=== PATIENT | male | born 1995 | race Caucasian/White ===

== ENCOUNTER 2020-08-17 23:05 | Emergency (ER) | payer OTHER ==
[~2020-08-17] VITALS: Ht 195.6 cm; Wt 135.0 kg
[~2020-08-17 23:05] MED LIST: ETOMIDATE 40 MG/20 ML VIAL. ONE; LIDOCAINE 2% SYRINGE 100 MG/5 ML DISP.SYRIN. ONE; MIDAZOLAM HCL PF 5 MG/5 ML VIAL. ONE
--- NOTE | 2020-08-17 23:33 | PHYS DOC ---
Past History Past Medical History: Hypothyroid General Adult HPI: HPI: Non-responsive Patient is a 25 year old male who presents with hx found down in cell at [facility]. Pt in cell with 9 other inmates. They notified guard pt. stopped breathing. Appeared to be choking or having seizure activity. Pt. no known seizure hx. Pt.had CPR for unknown length of time estimated 10 minutes with return to spontaneous circulation. Patient remained hypoxic and required bag mask ventilation. On arrival patient's hypoxic and minimal responsiveness. Patient had bite ferreira to tongue and appears to have aspirated stomach contents. Patient was sedated with Versed 5, 100 mg lidocaine, succinylcholine 100 , Etomidate 20, then, propofol. Patient intubated with a glide scope was of a 7.0 ET tube. 23-1/2 cm. at teeth. OG passed into stomach with return of stomach contents . Post intubation - had good breath sounds at apex axillary, no breath sounds over stomach. Was noted during intubation patient had food material in his ET tube. This was suction. Patient was given a breathing treatment. Patient also had OG placed with return of food particles from gastric contents. Was auscultated over the stomach. Patient transported to CT for evaluation of head neck chest chest and abdomen.. Patient did have bruising ferreira on mid abdomen (felt possibly due to hard restraints.). No medical history came with patient other than he was hypothyroid. Glucose during post code was in the 170s per paramedics. LEMON airway assessment made prior to intubation. Elected size 7 tube because Mallampati score 3 +, and need for limited neck mobility. Guard notes there has been increased use of K -4 use at [facility] recently. Review of Systems: Review of Systems: Not available due to patient's mental status Family History: Family History: Not currently available Current Medications: Current Meds: See nursing for home meds Allergies: Allergies: No known drug allergies Physical Exam: PE: Constitutional: In acute distress, ill appearance. [] HENT: Normocephalic, , bilateral external ears normal, oropharynx moist, no oral exudates, nose normal. Bite ferreira on tongue. Soft nasal airway in place. On oxygen 100%- NRBM, Stats 70-80. Eyes: PERRLA, , conjunctiva normal, no discharge. [] Neck: Normal range of motion, no tenderness, supple, no stridor. [] Cardiovascular: Tachycardia heart rate regular rhythm, no murmur , PMI to Lt. Lungs & Thorax: Bilateral breath sounds rhonchi, Rales, wheezing all lung simpson. More rhonchi on right lung simpson. Obvious food particles in ET tube Abdomen: Bowel sounds decreased, soft, no tenderness, no masses, no pulsatile masses. Bruising erythema over stomach area Skin: Warm, dry, no erythema, no rash. [] Back: No tenderness, no CVA tenderness. [] Extremities: Had peripheral cyanosis, no clubbing, moves all ext. with noxious stimuli, no edema. No cording appreciated. IO Rt tibia. Neurologic: Minimal response to noxious stimuli, does appear to move all extremities, unable to assess sensory other than. Withdrawal all 4 extremities with noxious stimuli. Appears to cross react Psychologic: Unknown status EKG: EKG: My interpretation of EKG shows a sinus tachycardia 105 bpm. [] Does have left axis deviation and a left anterior fascicular block. Radiology/Procedures: Radiology/Procedures: [][address] [address] IMAGING REPORT Signed PATIENT: BETO PANTOJA ACCOUNT: [id number] : 1995 LOCATION: ER AGE: 25 SEX: M EXAM STATUS: REG ER ORD. PHYSICIAN: KATHY MEDINA MD REASON: found down at [facility], UNRESPONSIVE PROCEDURE: CT ANGIO CHEST W ABD PEL W/ CTA CHEST_ABDOMEN_AND PELVIS INDICATION: found down at [facility], UNRESPONSIVE Comparison: None. TECHNIQUE: Following the uneventful administration of intravenous contrast, 100 cc Omnipaque 350, axial CT sections were obtained through the lungs and upper abdomen. Multiplanar reconstructions and MIP images were obtained. PQRS compliance statement: One or more of the following individualized dose reduction techniques were utilized for this examination: 1. Automated exposure control 2. Adjustment of the mA and/or kV according to patient size 3. Use of iterative reconstruction technique FINDINGS: Endotracheal tube terminates just above the chip. Enteric tube terminates in the stomach. Pulmonary arteries: No large central or lobar pulmonary thromboembolus. Distal branches not well evaluated due to motion artifact. Lungs and Airways: Extensive bilateral groundglass opacities and consolidations. No abnormality of the central airways. Pleura: The pleural spaces are normal. Heart and Mediastinum: The visualized thyroid is normal in size and attenuation. No axillary or supraclavicular lymphadenopathy. No mediastinal, hilar or retrocrural lymphadenopathy. The heart and pericardium are within normal limits. The great vessels of the thorax are normal. Abdomen: Limited images through the upper abdomen show no abnormality of the visualized organs. Bones and Soft Tissues: The visualized bones and chest wall soft tissues are within normal limits. IMPRESSION: 1. No large central or lobar pulmonary thromboembolus. Distal branches not well evaluated due to motion artifact. 2. Extensive bilateral groundglass opacities and consolidations, which could represent multifocal infection, pulmonary edema, and/or aspiration. Electronically signed by: Wil Mittal MD (08/18/2020 1:05 AM) [facility] DICTATED AND SIGNED BY: WIL MITTAL MD DATE: 08/18/20 0102 CC: KATHY MEDINA MD; PCP,NO ~MTH0 [address] [place] [id number] IMAGING REPORT Signed PATIENT: BETO PANTOJA ACCOUNT: [id number] : 1995 LOCATION: ER AGE: 25 SEX: M EXAM STATUS: REG ER ORD. PHYSICIAN: KATHY MEDINA MD REASON: found down at [facility] PROCEDURE: CT HEAD AND CERVICAL SPINE WO CT HEAD AND C-SPINE WO Date: 08/17/2020 11:45 PM Clinical Indication: found down at [facility] Comparison: None. Technique: 5 mm axial tomographic images were obtained of the head without contrast. These were viewed on brain and bone windows. CT imaging of the cervical spine was performed without contrast. Coronal and sagittal reformatted images were performed. One or more of the following dose reduction techniques were utilized: Automated exposure control (AEC), Adjustment of mA and/or kV according to patient size, Use of iterative reconstruction technique such as ASiR, CT scan done according to ALARA and image gently/image wisely HEAD FINDINGS: Motion artifact degrades image quality. The brain parenchyma is normal in attenuation. No intra- or extra-axial mass or fluid collection. No acute hemorrhage. The ventricles are normal in size, shape, and morphology. The cormier-white matter junction is normal. The basilar cisterns are patent. The visualized paranasal sinuses are normal. The visualized portions of the orbits and globes are normal. The mastoid air cells are clear. No aggressive osseous lesion or fracture. CERVICAL SPINE FINDINGS: The cervical spine is normally aligned. No acute fracture. No aggressive lytic or blastic osseous lesion. The intervertebral disc heights are maintained. No high-grade spinal canal stenosis or neural foraminal narrowing. The thyroid gland is normal. No cervical lymphadenopathy. The visualized aerodigestive tract is unremarkable. Please see concurrent CT chest report for intrathoracic finding. IMPRESSION: 1. No acute intracranial process. 2. No acute osseous abnormality of the cervical spine. Electronically signed by: Wil Mittal MD (08/18/2020 1:02 AM) [facility] DICTATED AND SIGNED BY: WIL MITTAL MD DATE: 08/18/20 0057 CC: KATHY MEDINA MD; PCP,NO ~MTH0 0 Impressions: Heart Score: C/O Chest Pain: N/A HEART Score for Chest Pain: HEART Score for Chest Pain Response (Comments) Value History Moderately Suspicious 1 ECG Nonspecific Repolarizatio 1 Age < 45 0 Risk Factors 1 or 2 Risk Factors 1 Troponin < Normal Limit 0 Total 3 Risk Factors: Risk Factors: DM, Current or recent (<one month) smoker, HTN, HLP, family history of CAD, obesity. Risk Scores: Score 0 - 3: 2.5% MACE over next 6 weeks - Discharge Home Score 4 - 6: 20.3% MACE over next 6 weeks - Admit for Clinical Observation Score 7 - 10: 72.7% MACE over next 6 weeks - Early Invasive Strategies Course & Med Decision Making: Course & Med Decision Making Pertinent Labs and Imaging studies reviewed. (See chart for details) Critical care 90 min. without procedures. Vent management, treatment. Discussed presentation, testing and tx. plan with Dr. Woody - accepted pt. in transfer at 0045. Impression:': 1. Cardiopulmonary arrest-status CPR approximately 10 minutes 2. Respiratory failure-multifactorial extensive aspiration,vs atypical pneumonia-hypoxia 3. Seizure Activity 4. Leukocytosis 18.2 5. Elevated glucose 271 6. Elevated D-dimer 3.8 7. Elevated lactic acid 5.1 8. Elevated AST ALT 254/08/15/1969 9. Hx of Hypo thyoridism 10. Initial troponin is 0.017 [] Dragon Disclaimer: Dragon Disclaimer: This electronic medical record was generated, in whole or in part, using a voice recognition dictation system. Departure Departure: Referrals: PCP,NO (PCP) Joce Disclaimer This chart was dictated in whole or in part using Voice Recognition software in a busy, high-work load, and often noisy Emergency Department environment. It may contain unintended and wholly unrecognized errors or omissions. KATHY MEDINA MD Aug 17, 2020 23:33
[2020-08-17] MEDS ORDERED: IOHEXOL 350 MG/ML 100 ML VIAL. ONE (23:40)
[2020-08-17] MEDS ORDERED: IV RINGERS SOLUTION,LACTATED 1,000 ML IV SCH (23:45)
[2020-08-17] MEDS ORDERED: PROPOFOL 20 ML IV ONE (23:45)
[2020-08-17] MEDS ORDERED: PROPOFOL 10,000 MCG/ML (20ML) VIAL IV ONE (23:45)
[2020-08-17 23:55] LABS: BASO # 0.1 x10^3/uL (0.0-0.2); BASO % 0 % (0-3); EOS # 0.3 x10^3/uL (0.0-0.7); EOS % 2 % (0-3); HEMOGLOBIN 14.3 g/dL (13.0-17.5); LYMPH # 6.4 x10^3/uL (1.0-4.8); LYMPH % 35 % (24-48); MEAN CORPUSCULAR HEMOGLOBIN 30 pg (25-35); MEAN CORPUSCULAR HGB CONC 33 g/dL (31-37); MEAN CORPUSCULAR VOLUME 92 fL (79-100); MONO # 0.7 x10^3/uL (0.0-1.1); MONO % 4 % (0-9); NEUT # 10.8 x10^3uL (1.8-7.7); NEUT % 59 % (31-73); PLATELET COUNT 385 x10^3/uL (140-400); RED BLOOD COUNT 4.76 x10^6/uL (4.30-5.70); RED CELL DISTRIBUTION WIDTH 13.5 % (11.5-14.5); WHITE BLOOD COUNT 18.2 x10^3/uL (4.0-11.0)
[2020-08-17] MEDS ORDERED: MIDAZOLAM HCL PF 5 MG/5 ML VIAL. ONE (23:56)
[2020-08-17 23:57] LABS: CALCIUM 7.9 mg/dL (8.5-10.1); CREATININE 1.2 mg/dL (0.7-1.3); GFR 74.4; POTASSIUM 3.2 mmol/L (3.5-5.1)
[2020-08-17 23:58] LABS: BARBITURATES NEG (NEG); BENZODIAZEPINES NEG (NEG); CANNABINOIDS NEG (NEG); COCAINE NEG (NEG); METHADONE NEG (NEG); OPIATES NEG (NEG); PHENCYCLIDINE NEG (NEG)
[2020-08-18] MEDS ORDERED: ALBUTEROL SULFATE 2.5 MG/3 ML NEBU. INH ONE
[2020-08-18 00:09] LABS: ALBUMIN 3.6 g/dL (3.4-5.0); DIRECT BILIRUBIN 0.1 mg/dL (0.0-0.2); MAGNESIUM 2.2 mg/dL (1.8-2.4); TOTAL BILIRUBIN 0.2 mg/dL (0.2-1.0)
[2020-08-18 00:09] LABS: BILIRUBIN,URINE NEG (NEG); CLARITY,URINE HAZY; COLOR,URINE YELLOW; GLUCOSE,URINE 100 mg/dL (NEG); NITRITE,URINE NEG (NEG); RBC,URINE 0 /HPF (0-2); UROBILINOGEN,URINE 0.2 mg/dL (0.2 mg/dL)
[2020-08-18 00:10] LABS: BACTERIA,URINE FEW /HPF (0-FEW); SQUAMOUS EPITHELIAL CELL,UR OCC /LPF
[2020-08-18 00:13] LABS: AMPHETAMINE/METHAMPHETAMINE NEG (NEG)
[2020-08-18 00:23] LABS: % BANDS 11 % (0-9); % EOS 3 % (0-5); % LYMPHS 45 % (24-48); % MONOS 2 % (0-10); % SEGS 39 % (35-66); PLT ESTIMATE ADEQUATE (ADEQUATE)
[2020-08-18] MEDS ORDERED: MIDAZOLAM HCL PF 5 MG/5 ML VIAL. ONE ×2 (00:28→04:08)
[2020-08-18] MEDS ORDERED: IOHEXOL 350 MG/ML 100 ML VIAL. IV ONE (00:30)
[2020-08-18] MEDS ORDERED: KETAMINE HCL 500 MG/10 ML VIAL. IV ONE ×2 (01:00→02:15)
[2020-08-18] MEDS ORDERED: IV RINGERS SOLUTION,LACTATED 1,000 ML IV ONE ×3 (01:00→03:45)
[2020-08-18] MEDS ORDERED: ENOXAPARIN ** NOTE DOSE ** SYRINGE SQ ONE (01:00)
[2020-08-18] MEDS ORDERED: AZITHROMYCIN 250 MG TABLET. PO ONE (01:00)
--- NOTE | 2020-08-18 01:04 | RAD ---
CT HEAD AND C-SPINE WO Date: 08/17/2020 11:45 PM Clinical Indication: found down at intermediate Comparison: None. Technique: 5 mm axial tomographic images were obtained of the head without contrast. These were view ed on brain and bone windows. CT imaging of the cervical spine was performed without contrast. Coron al and sagittal reformatted images were performed. One or more of the following dose reduction techni ques were utilized: Automated exposure control (AEC), Adjustment of mA and/or kV according to patient size, Use of iterative reconstruction technique such as ASiR, CT scan done according to ALARA and im age gently/image wisely HEAD FINDINGS: Motion artifact degrades image quality. The brain parenchyma is normal in attenuation. No intra- or extra-axial mass or fluid collection. No acute hemorrhage. The ventricles are normal in size, shape, and morphology. The cormier-white matter laurie ction is normal. The basilar cisterns are patent. The visualized paranasal sinuses are normal. The visualized portions of the orbits and globes are no rmal. The mastoid air cells are clear. No aggressive osseous lesion or fracture. CERVICAL SPINE FINDINGS: The cervical spine is normally aligned. No acute fracture. No aggressive lytic or blastic osseous les ion. The intervertebral disc heights are maintained. No high-grade spinal canal stenosis or neural foramin al narrowing. The thyroid gland is normal. No cervical lymphadenopathy. The visualized aerodigestive tract is unrem arkable. Please see concurrent CT chest report for intrathoracic finding. IMPRESSION: 1. No acute intracranial process. 2. No acute osseous abnormality of the cervical spine. Electronically signed by: Issa Mittal MD (08/18/2020 1:02 AM) [facility]
--- NOTE | 2020-08-18 01:07 | RAD ---
CTA CHEST_ABDOMEN_AND PELVIS INDICATION: found down at correction, UNRESPONSIVE Comparison: None. TECHNIQUE: Following the uneventful administration of intravenous contrast, 100 cc Omnipaque 350, axi al CT sections were obtained through the lungs and upper abdomen. Multiplanar reconstructions and MIP images were obtained. RS compliance statement: One or more of the following individualized dose reduction techniques were utilized for this examinat ion: 1. Automated exposure control 2. Adjustment of the mA and/or kV according to patient size 3. Use of iterative reconstruction technique FINDINGS: Endotracheal tube terminates just above the chip. Enteric tube terminates in the stomach. Pulmonary arteries: No large central or lobar pulmonary thromboembolus. Distal branches not well eval uated due to motion artifact. Lungs and Airways: Extensive bilateral groundglass opacities and consolidations. No abnormality of th e central airways. Pleura: The pleural spaces are normal. Heart and Mediastinum: The visualized thyroid is normal in size and attenuation. No axillary or supra clavicular lymphadenopathy. No mediastinal, hilar or retrocrural lymphadenopathy. The heart and peric ardium are within normal limits. The great vessels of the thorax are normal. Abdomen: Limited images through the upper abdomen show no abnormality of the visualized organs. Bones and Soft Tissues: The visualized bones and chest wall soft tissues are within normal limits. IMPRESSION: 1. No large central or lobar pulmonary thromboembolus. Distal branches not well evaluated due to annette on artifact. 2. Extensive bilateral groundglass opacities and consolidations, which could represent multifocal inf ection, pulmonary edema, and/or aspiration. Electronically signed by: Issa Mittal MD (08/18/2020 1:05 AM) [facility]
[2020-08-18] MEDS ORDERED: cefTRIAXone SODIUM 1 GM VIAL ONE (01:11)
[2020-08-18] MEDS ORDERED: IV NORMAL SALINE 50ML 50 ML ONE (01:11)
[2020-08-18] MEDS ORDERED: CONTRAST GIVEN. MC PRN (01:15)
[2020-08-18] MEDS ORDERED: POTASSIUM CHLORIDE 20MEQ 100 ML IV ONE (01:15)
[2020-08-18] MEDS ORDERED: IV NORMAL SALINE 100ML 100 ML ONE ×2 (01:16→01:42)
[2020-08-18] MEDS ORDERED: AZITHROMYCIN 500 MG VIAL. IV ONE ×3 (01:16→02:32)
[2020-08-18] MEDS ORDERED: levETIRAcetam 500 MG/5 ML VIAL IV ONE ×2 (01:17→01:46)
[2020-08-18] MEDS ORDERED: AZITHROMYCIN 500 MG in IV NORMAL SALINE 250ML 250 ML IV ONE (01:30)
--- NOTE | 2020-08-18 01:51 | RAD ---
XR CHEST 1V INDICATION: Intubation. COMPARISON STUDY: CT 08/18/2020. FINDINGS: Life Support Devices: Endotracheal tube terminates 3.3 cm above the chip. Enteric tube courses into the stomach and beyond the inferior [id number]. Lungs: Low lung volume. Stable diffuse bilateral opacities. Pleura: No pleural effusion or pneumothorax. Heart and Mediastinum: Stable cardiomediastinal silhouette and great vessels. IMPRESSION: 1. Life-support devices as above. 2. Stable diffuse bilateral opacities. Electronically signed by: Issa Mittal MD (08/18/2020 1:49 AM) [facility]
[2020-08-18 01:55] LABS: BGAS PH 7.28 (7.35-7.46)
[2020-08-18] MEDS ORDERED: IV NORMAL SALINE 250ML 250 ML ONE (02:31)
[2020-08-18 02:42] VITALS: BP 128/66
[2020-08-18 02:44] LABS: ACETAMIN < 2.0 mcg/mL (10-30); SALIC < 2.8 mg/dL (2.8-20.0)
--- NOTE | 2020-08-18 03:52 | EKG ---
[address] [address] Test Date: 2020-08-18 Test Time: 01:17:22 Pat Name: BETO PANTOJA Department: Room: Gender: M Senior Structural Engineer: : 1995 Requested By: KATHY MEDINA Order Number: [id number] Reading MD: Measurements Intervals [place] Rate: 105 P: 33 NH: 158 QRS: -37 QRSD: 102 T: 68 QT: 358 QTc: 477 Interpretive Statements SINUS TACHYCARDIA ABNORMAL LEFT AXIS DEVIATION LEFT ANTERIOR FASCICULAR BLOCK ABNORMAL ECG RI6.02 No previous ECG available for comparison
[2020-08-18] MEDS ORDERED: MIDAZOLAM HCL PF 5 MG/5 ML VIAL. IV ONE ×6 (05:00)
== END 2020-08-18 03:15 | disposition short-term general hospital (02) ==
LOC: ER 23:05 → EEVIPCON 23:05 → ER 08-18 03:15
DX: I46.9 Cardiac arrest, cause unspecified (principal); J96.91 Respiratory failure, unspecified with hypoxia; D72.829 Elevated white blood cell count, unspecified; R73.9 Hyperglycemia, unspecified; E03.9 Hypothyroidism, unspecified
CPT/HCPCS: 31500; 36415; 36600; 70450; 71045; 71275; 72125; 74177; 80048; 80076; 80307; 80329; 81001; 82550; 82803; 83605; 83690; 83735; 83880; 84443; 84484; 85007; 85025; 85379; 85610; 85730; 86141; 87040; 87086; 92950; 92960; 93005; 94002; 94640; 96365; 96366; 96368; 96372; 96375; 96376; 99291; 99292; J0456; J0696; J1650; J1953; J2250; J2704; J3480; J7050; J7120; J7613; Q9967; G0480